=== PATIENT | female | born 1985 | race Caucasian/White ===

== ENCOUNTER → 2018-03-04 | Outpatient (CLI) | payer MEDICAID | LOC: HPND 10:24 | PROVIDERS: ATTEND Obstetrics & Gynecology | DX: O35.1XX0 Maternal care for (suspected) chromosomal abnormality in fetus, not applicable or unspecified (principal); O35.2XX0 Maternal care for (suspected) hereditary disease in fetus, not applicable or unspecified; O34.12 Maternal care for benign tumor of corpus uteri, second trimester; O99.412 Diseases of the circulatory system complicating pregnancy, second trimester | CPT/HCPCS: 76811; 76825; 76827; 93325 ==

== ENCOUNTER → 2018-04-01 | Outpatient (CLI) | DX: O35.1XX0 Maternal care for (suspected) chromosomal abnormality in fetus, not applicable or unspecified (principal); O35.2XX0 Maternal care for (suspected) hereditary disease in fetus, not applicable or unspecified; O34.10 Maternal care for benign tumor of corpus uteri, unspecified trimester ==